=== PATIENT | male | born 1985 | race Caucasian/White ===

== ENCOUNTER 2017-09-09 17:32 | Emergency (ER) | payer BC ==
[~2017-09-09] VITALS: Ht 185.4 cm; Wt 83.9 kg
[~2017-09-09 17:32] MED LIST: CLINDAMYCIN HC300 MG PO; COLACE100 MG PO; IBUPROFEN200 M1 PO; IBUPROFEN600 MG PO; NORCO 5-325 TA1 EACH PO
[2017-09-09] MEDS ORDERED: AUGMENTIN 875-1 EACH PO (18:24)
[2017-09-09] MEDS ORDERED: NORCO 10-325 T1 EACH PO (18:24)
== END 2017-09-09 18:30 | disposition home or self-care (01) ==
LOC: ED 17:32
DX: L02.31 Cutaneous abscess of buttock (principal); F17.200 Nicotine dependence, unspecified, uncomplicated; Z88.2 Allergy status to sulfonamides; Z88.8 Allergy status to other drugs, medicaments and biological substances; Z79.899 Other long term (current) drug therapy; Z79.2 Long term (current) use of antibiotics
CPT/HCPCS: 99283

== ENCOUNTER 2018-04-13 07:21 | Emergency (ER) | payer OTHER ==
[~2018-04-13] VITALS: Ht 185.4 cm; Wt 83.9 kg
[~2018-04-13 07:21] MED LIST changes: +AUGMENTIN 875-1 EACH PO; +NORCO 10-325 T1 EACH PO
== END 2018-04-13 09:21 | disposition short-term general hospital (02) ==
LOC: ED 07:21
DX: T15.92XA Foreign body on external eye, part unspecified, left eye, initial encounter (principal); Z88.1 Allergy status to other antibiotic agents; F17.200 Nicotine dependence, unspecified, uncomplicated; Z88.2 Allergy status to sulfonamides
CPT/HCPCS: 90471; 99284